=== PATIENT | male | born 1985 | race African-American/Black ===

== ENCOUNTER 2022-11-26 10:30 | Emergency (ER) | payer MEDICAID ==
[~2022-11-26] VITALS: Ht 185.4 cm; Wt 81.8 kg
[2022-11-26] MEDS ORDERED: ACETAMINOPHEN 325 MG TABLET PO ONE (11:30)
[2022-11-26] MEDS ORDERED: LIDOCAINE 5% TRANSDERMAL PATCH TD ONE (11:30)
[2022-11-26] MEDS ORDERED: IBUPROFEN 600 MG TABLET PO ONE (11:30)
[2022-11-26 12:09] LABS: BASOPHILS % (AUTO) 1.3 % (0.0-2.0); EOSINOPHILS % (AUTO) 4.1 % (1.0-6.0); HEMATOCRIT 37.9 % (41-53); HEMOGLOBIN 12.5 g/dL (13.5-17.5); LYMPHOCYTES # (AUTO) 2.5 K/uL (1.0-4.8); LYMPHOCYTES % (AUTO) 34.7 % (22.0-44.0); MEAN CORPUSCULAR HEMOGLOBIN 23.8 pg (26.0-34.0); MEAN CORPUSCULAR VOLUME 72 fL (80-100); MONOCYTES # (AUTO) 0.5 K/uL (0.1-1.0); MONOCYTES % (AUTO) 6.9 % (2.0-9.0); NEUTROPHILS # (AUTO) 3.8 K/uL (1.8-7.7); PLATELET COUNT (AUTO) 376 K/uL (150-450); RED BLOOD CELL COUNT(AUTO) 5.24 MIL/uL (4.50-5.90); RED CELL DISTRIBUTION WIDTH 15.4 % (11.5-14.5)
[2022-11-26 12:19] LABS: ANION GAP 5 mmol/L (8-16); CALCIUM, TOTAL 9.3 mg/dL (8.8-10.5); CARBON DIOXIDE 29 mmol/L (22-29); CHLORIDE 104 mmol/L (98-107); CREATININE 1.06 mg/dL (0.60-1.30); GLOMERULAR FILTR. RATE CALC > 60 mL/min (>60); GLUCOSE,RANDOM 83 mg/dL (70-110); POTASSIUM 4.3 mmol/L (3.5-5.1); SODIUM SERUM 138 mmol/L (136-145); UREA NITROGEN, BLOOD 10 mg/dL (7-18)
[2022-11-26] MEDS ORDERED: LIDO1ADH83 TP (12:33)
[2022-11-26 12:40] VITALS: BP 128/73
== END 2022-11-26 12:42 | disposition home or self-care (01) ==
LOC: EMS 10:33
DX: M54.2 Cervicalgia (principal); R07.89 Other chest pain
CPT/HCPCS: 71046; 80048; 84484; 85025; 93005; 99285; 36415-L1; 36415-TC